=== PATIENT | male | born 1955 | race Caucasian/White ===

== ENCOUNTER 2022-11-30 10:59 | Emergency (ER) | payer BC, OTHER, SELFPAY ==
[2022-11-30 11:00] VITALS: BP 172/100; PULSE 91; RESP 18; TEMP 36.6; O2SAT 97; BMI 20.6
--- NOTE | 2022-11-30 11:23 | RAD_ITS ---
STUDY: X-RAY CHEST REASON FOR EXAM: Male, 67 years old. Chest pain and left arm numbness. TECHNIQUE: Single AP portable view of the chest. COMPARISON: None. FINDINGS: EKG lead are seen. Hyperinflation. The lungs are clear. There is no demonstrated pleural abnormality. Normal size heart. Normal mediastinum and larry. Normal visualized pulmonary arteries. There is atherosclerotic calcification of the aortic arch with tortuosity. There are diffuse degenerative changes of the visualized thoracic spine. Normal visualized ribs, clavicles, and shoulders. There is no demonstrated abnormality of the visualized soft tissue structures of the upper abdomen. RAD/Chest 1 View (Portable) IMPRESSION: Hyperinflation. The lungs are clear. Electronically Signed: Roshan Resendez MD at 12:00 EDT ,
--- NOTE | 2022-11-30 11:25 | EDS_ITS ---
HPI History of Present Illness Chief Complaint: Numb/Ting Narrative Narrative: 67-year-old male who denies significant past medical history presents with intermittent numbness and tingling of his left arm. He states he had pain 2 weeks ago in his left axillary area. He then had numbness radiating from his armpit down to about his wrist. He denies any fevers or chills, no cough, no chest pain or shortness of breath. No nausea, vomiting, or diaphoresis. He states that when he has his arm up by his head, he can get numbness, but when he puts his arm down by his side, tends to relieve it. It can come multiple times a day also. He denies any neck pain. No recent injuries. [facility] Medical History Ventral hernia Home Medications pseudoephed 30 mg-DM 10 mg-guaifen 100 mg-acetaminophen 250 mg capsule (Daytime Cold and Flu Relief) 2 cap PO ONCE 08/17/17 [History Last Taken Unknown] Allergy/AdvReac Type Severity Reaction Status Date / Time No Known Allergies Allergy Verified 11/30/22 11:00 Surgical History H/O hernia repair Social History Smoking Status: Current every day smoker tobacco type: cigarettes how long ago did patient quit smokin week alcohol intake: current details: drinks 3-5 beers per week ROS ROS ED ROS Narrative Constitutional: No fever, no chills. HEENT: No sore throat. No neck pain. No loss of vision. No rhinorrhea. Cardiovascular: No chest pain. No palpitations. No pedal edema. Respiratory: No cough, no shortness of breath. Abdominal: No abdominal pain. No nausea. No vomiting. Genitourinary: No dysuria. No hematuria. Musculoskeletal: No myalgias. No arthralgias. Neurologic: No headaches. No dizziness. No lightheadedness. Positive paresthesia, numbness of left arm and through biceps and into forearm. Skin: No rash. No change in color. Psychiatric: No depression. No anxiety. EXAM Physical Exam Narrative Exam Narrative: Afebrile. Vital signs noted. HEENT: Normocephalic. Atraumatic. PERRL, EOMI. Neck soft and supple. No point tenderness or step off. No neck tenderness. Cardiovascular: Regular rate and rhythm. No murmurs, rubs, or gallops appreciated. Respiratory: No tachypnea. Lungs clear to auscultation bilaterally. Gastrointestinal: Abdomen soft, nontender, with normoactive bowel sounds. No rebound or guarding. Neurological: Awake. Alert. Nonfocal, nonlateralizing. Skin: No rash. Normal color. No pallor. Musculoskeletal: No pedal edema. Full range of motion extremities. Palpable radial pulses. Const Vital Signs: 11/30/22 11:00 11/30/22 11:52 11/30/22 11:52 Temperature 97.8 F Temperature Source Temporal Pulse Rate 91 83 Respiratory Rate 18 18 Blood Pressure 172/100 H 138/95 H Blood Pressure Mean 124 109 Pulse Ox 97 95 Oxygen Delivery Method Room Air Room Air Room Air MDM MDM MDM Narrative Medical decision making narrative: Chest pain work-up was pursued in the event that this is referred pain. However, I do feel that he only needs 1 troponin. His blood pressure was elevated at 172/100 in triage, but it has come down to 146, right around where he states his baseline usually is for his primary care physician. In the differential diagnosis is spinal stenosis as he is not having neck pain. However I do not feel that imaging of the neck is indicated as he has full range of motion without pain. 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 This was in 2017 where he may have had procedures performed regarding it. EKG was obtained and interpreted by myself and it shows normal sinus rhythm with a sinus arrhythmia at [address] changes. No STEMI. I reviewed his laboratory work, he has a normal white count of 6.3, hemoglobin normal at 13.2, hematocrit 40.0, normal platelet count of 177. In review of his electrolyte panel, he has a normal sodium of 139, potassium normal at 3.9, normal anion gap of 6. Glucose is elevated at 150 but he has a normal anion gap as previously stated, I do not feel that he is in diabetic ketoacidosis. Magnesium is normal at 2.1, high-sensitivity troponin is normal at 5. Once again, I do not feel that repeat is indicated. This is been ongoing for at least 2 weeks. Chest x-ray interpreted by myself shows no evidence of pneumonia or pneumothorax. I reviewed the radiology report which confirms my independent interpretation. Upon speaking with the patient again, he does remember that he had shoulder impingement syndrome. I do feel that as this was back in 2017 when it was treated, that he may be having impingement syndrome symptoms again because he states when his hand is by his head, that is when he gets numbness down his arm. He has not had an episode here in the emergency department. I am less concern for stroke and do feel it is more of a peripheral neuropathy that his transient. At this point in time, he will follow-up with his primary care physici an/provider. He is also referred to another orthopedist. I feel he can be discharged safely home with follow-up. Return instructions were reviewed. His blood pressure has normalized to his baseline of 138/95. Disposition is discharged home in stable condition. History & Record Review Discussion w/independent historian: Patient Additional record(s) reviewed:: Prior outpatient record Lab Data Labs: Laboratory Results - last 24 hr 11/30/22 11/30/22 11:40 11:40 WBC 6.3 RBC 4.13 L Hgb 13.2 Hct 40.0 MCV 96.9 H MCH 32.0 MCHC 33.0 RDW Std Deviation 45.9 H RDW Coeff of Sandi 12.8 Plt Count 177 MPV 10.6 Immature Gran % (Auto) 0.300 Neut % (Auto) 66.4 Lymph % (Auto) 21.9 [place] % (Auto) 8.4 Eos % (Auto) 2.5 Baso % (Auto) 0.5 Absolute Neuts (auto) 4.2 Absolute Lymphs (auto) 1.39 Nucleated RBC % 0 Sodium 139 Potassium 3.9 Chloride 106 Carbon Dioxide 27.0 Anion Gap 6 BUN 18 Creatinine 0.95 Estim Creat Clear Calc 69.53 Est GFR (MDRD) Af Amer 102 Est GFR (MDRD) Non-Af 85 BUN/Creatinine Ratio 19.0 Glucose 150 H Calcium 9.0 Magnesium 2.1 Troponin I High Sens 5 Radiography Diagnostic Testing: Clinical Impression(s) from Imaging Studies Chest X-Ray 11/30/22 11:23 IMPRESSION: Hyperinflation. The lungs are clear. Electronically Signed: Roshan Resendez MD at 12:00 EDT , Discharge Plan Triage Chief Complaint: Numb/Ting ED Provider: Jose D Rader Dx/Rx/DC Orders Clinical Impression: Paresthesia of left arm, Impingement syndrome, shoulder, left Prescriptions: No Action [id number]-acetaminophen [Daytime Cold and Flu Relief] [id number] mg capsule 2 cap PO ONCE Primary Care Provider: Kwabena Bills NP Referrals: Javier Calvert MD [Med Staff - Active Staff] - As Needed Kwabena Bills NP, [employer] [Primary Care Provider] - 3-5 Days if not i mproving Disposition Disposition: Home, Self Care
--- NOTE | 2022-11-30 11:30 | EKG12_ITS ---
Test Reason : Blood Pressure : / mmHG Vent. Rate : 083 BPM Atrial Rate : 083 BPM P-R Int : 124 ms QRS Dur : 082 ms QT Int : 360 ms P-R-T Axes : 066 081 070 degrees QTc Int : 423 ms Normal sinus rhythm with sinus arrhythmia Normal ECG Confirmed by TAMMIE ROLLINS, JANETH ([id number]), photographic editor BUDDY JONES ([id number]) on 12/01/2022 8:40:44 AM Referred By: GEOVANNA Confirmed By:JANETH CHO MD
[2022-11-30 11:45] LABS: Absolute Lymphocyte Count 1.39 X10^3/uL (0.83-4.51); Absolute Neutrophil Count 4.2 X10^3/uL (2.0-7.7); Basophil# 0.03 X10^3/uL; Basophil% 0.5 % (0-1); Eosinophil# 0.16 X10^3/uL; Eosinophils% 2.5 % (0-5); Hemoglobin 13.2 g/dL (13.0-16.5); Lymphocyte # 1.39 X10^3/ul (0.83-4.51); Lymphocyte % 21.9 % (19-41); Mean Corpuscular Volume 96.9 fL (80-94); Mean Platelet Vol. 10.6 fl (6.2-12.0); Monocyte# 0.53 X10^3/uL; Monocyte% 8.4 % (0-10); NRBC Flagged by Analyzer 0 % (0-5); Neutrophil # 4.21 X10^3/uL (2.7-7.7); Neutrophil % 66.4 % (47-70); Platelet Count 177 K/mm3 (150-450); RBC Distribution Width CV 12.8 % (11.6-14.6); RBC Distribution Width SD 45.9 fl (35.1-43.9); Red Blood Count 4.13 M/mm3 (4.6-6.2); White Blood Count 6.3 K/mm3 (4.4-11.0)
[2022-11-30] MEDS: Aspirin 81 MG TAB.CHEW 324 MG PO (11:51)
[2022-11-30 11:52] VITALS: BP 138/95; PULSE 83; RESP 18; O2SAT 95
[2022-11-30 12:03] LABS: Anion Gap 6 (5-15); BUN 18 mg/dL (7-18); Chloride 106 mmol/L (98-107); Creatinine, Serum 0.95 mg/dL (0.70-1.30); EST Glomerular Filtration Rate 85 mL/min (>60); Est Glom Filt Rate - Afr Amer 102 mL/min (>60); Estimated Creatinine Clearance 69.53 ml/min; Glucose 150 mg/dL (74-106); Magnesium 2.1 mg/dL (1.6-2.6); Potassium 3.9 mmol/L (3.5-5.1); Sodium Level 139 mmol/L (136-145); Troponin-I HS 5 pg/mL (3.0-78.0)
[2022-11-30 13:44] VITALS: BP 153/74; PULSE 68; RESP 18; O2SAT 97
== END 2022-11-30 13:45 | disposition home or self-care (01) ==
PROVIDERS: Emergency Provider Emergency Medicine; PCP Nurse Practitioner Family; Visit Provider Emergency Medicine
DX: R20.2 Paresthesia of skin (principal); M75.42 Impingement syndrome of left shoulder; F17.210 Nicotine dependence, cigarettes, uncomplicated
CPT/HCPCS: 71045; 80048; 83735; 84484; 85025; 93005; 99285

== ENCOUNTER 2024-08-29 09:36 | Emergency (ER) | payer BC, OTHER, SELFPAY ==
[2024-08-29 09:37] VITALS: BP 161/88; PULSE 105; RESP 14; TEMP 36.7; O2SAT 98
--- NOTE | 2024-08-29 10:01 | EDS_ITS ---
HPI History of Present Illness Chief Complaint: Lower Extremity Injury Informant: patient Narrative Narrative: 69-year-old male presenting to the emergency room with right leg pain. Patient states that he has intermittently been experiencing pain in the right buttock right lateral thigh. Over the past 4 to 5 days it worsened. He went saw his doctor who felt that it could possibly be sciatica versus peripheral artery disease. He is a smoker. He notes that his leg has not been discolored. He does note discomfort with activity like climbing a ladder and lifting batteries but he also notes pain in the buttock when he goes to sit down on the commode. He states he had a life line screening that showed possible arterial blockage on the right leg. His doctor set him up for ABIs. He denies any swelling to the leg. He notes no discomfort from the knee down. He denies any low back pain recent back injuries IVD malignancy or immunosuppression [facility] Medical History Ventral hernia Home Medications ?Medication ?Instructions ?Recorded ?Last Taken ?Type pseudoephed 30 mg-DM 10 mg-guaifen 2 cap PO ONCE 08/17/17 Unknown History 100 mg-acetaminophen 250 mg capsule (Daytime Cold and Flu Relief) oxycodone-acetaminophen 5 mg-325 1 tab PO Q6H PRN PRN Pain 3 days 08/29/24 Unknown Rx mg tablet #12 TABLETS Allergy/AdvReac Type Severity Reaction Status Date / Time No Known Allergies Allergy Verified 08/29/24 09:39 Surgical History H/O hernia repair Social History Smoking Status: Current every day smoker tobacco type: cigarettes how long ago did patient quit smokin week alcohol intake: current details: drinks 3-5 beers per week ROS ROS ED Constitutional Constitutional ED: Denies chills or weight loss Eyes Eyes: Denies change in vision or diplopia ENT ENT ED: Denies ear pain, rhinorrhea or sore throat Cardiovascular Cardiovascular: Denies chest pain, orthopnea, palpitations or racing heartbeat Respiratory/Chest Respiratory/Chest: Denies cough, dyspnea or orthopnea Gastrointestinal Gastrointestinal: Denies abdominal pain, diarrhea, nausea or vomiting Genitourinary Genitourinary ED: Denies dysuria, hematuria or urinary frequency Musculoskeletal Musculoskeletal: Reports other Details: See history of present illness ; Denies arthralgias, back pain or myalgias Integumentary Denies abscess or rash Neurologic Neurologic: Denies headache(s) or weakness Psychiatric Psychiatric: Denies anxiety, depression, suicidal ideation or suicidal thoughts Endocrine Endocrinology: Denies polydipsia, polyphagia or polyuria Allergic/Immunologic Allergic/Immunologic ED: Denies mouth swelling, tongue swelling or urticaria EXAM Physical Exam Const Vital Signs: 08/29/24 09:37 Temperature 98.0 F Temperature Source Oral Pulse Rate 105 H Respiratory Rate 14 Blood Pressure 161/88 H Blood Pressure Mean 112 Pulse Ox 98 Oxygen Delivery Method Room Air Positive well nourished and well developed General Appearance ED: well developed HEENT Reports normocephalic, head/scalp atraumatic and moist mucous membranes Eyes PERRL and EOMs intact bilaterally Neck no lymphadenopathy, supple and no JVD Resp normal respiratory effort and clear to auscultation bilaterally Cardio regular rate, regular rhythm and no murmurs GI normal to inspection, nondistended, normoactive bowel sounds and non-tender Palpation: soft Back/Spine no CVA tenderness and normal ROM Extremity Extremity Narrative: Normal skin color. Equal hair bilaterally. Strong dorsalis pedis and posterior tibial pulses bilaterally symmetric. He has some mild tenderness over the right piriformis musculature and the right greater trochanter. General Extremety ED: Negative for edema General Extremity: Negative for edema Neuro oriented x3 and CN's II-XII intact bilaterally Sensorium / Orientation: alert Motor Exam: strength 5/5 throughout Psych mental status grossly normal Mood & Affect: Negative for depressed or tearful Skin no rashes or lesions noted and no wounds MDM MDM MDM Narrative Medical decision making narrative: Differential diagnosis includes but not limited to lumbar radiculopathy sciatica tendinitis bursitis peripheral artery disease DVT shingles I do not appreciate any rash. He has a strong dorsalis pedis posterior tibial pulses. He may certainly have peripheral artery disease given his history but clinically I think it sciatica is more likely. I can write for some pain medication. We talked about stretching and heat as well as deep tissue massage. He will await his ABIs. History & Record Review Discussion w/independent historian: Patient Discharge Plan Triage Chief Complaint: Lower Extremity Injury ED Provider: Brian Joyce Dx/Rx/DC Orders Clinical Impression: Sciatica Instructions: Back Exercises: Hip Rotator Stretch, ED Sciatica Prescriptions: New oxycodone-acetaminophen 5-325 mg tablet 1 tab PO Q6H PRN PRN (Reason: Pain) 3 Days Qty: 12 0RF No Action [id number]-acetaminophen [Daytime Cold and Flu Relief] [id number] mg capsule 2 cap PO ONCE Primary Care Provider: Kwabena Bills NP Referrals: Kwabena Bills NP, [employer] [Primary Care Provider] - Keep Marit[facility] appointment Print Language: Prydeinig Disposition Disposition: Home, Self Care
== END 2024-08-29 10:19 | disposition home or self-care (01) ==
LOC: ED 10:08
PROVIDERS: Emergency Provider Emergency Medicine; PCP Nurse Practitioner Family; Visit Provider Emergency Medicine
DX: M54.31 Sciatica, right side (principal); F17.210 Nicotine dependence, cigarettes, uncomplicated
CPT/HCPCS: 99282